=== PATIENT | male | born 1945 | race Caucasian/White ===

== ENCOUNTER 2023-04-06 17:06 | Inpatient (IN) ==
[2023-04-06 18:46] LABS: ABS Basophils 0.1 10^3/uL (0.0-0.1); ABS Lymphocytes 2.2 10^3/uL (1.0-4.8); ABS Monocytes 1.4 10^3/uL (0.0-1.1); ABS Neutrophils 16.3 10^3/uL (1.5-7.6); ABS Nucleated RBC 0.01 10^3/ul; Hematocrit 30.7 % (38-53); Hemoglobin 10.1 g/dL (13.2-16.3); Lymphocyte % 11.1 %; Mean Corpuscular Hemoglobin 32.1 pg (27-33); Mean Corpuscular Volume 97.4 fL (80-97); Mean Platelet Volume 9.9 fL (7.5-11.2); Platelet Count 206 10^3/uL (150-450); Red Blood Count 3.15 10^6/uL (4.06-5.63); Red Cell Distribution Width 13.9 % (12-17)
[2023-04-06 18:56] LABS: Activated Partial Thrombo Time 29.4 seconds (26.0-38.0); INR 1.73 (0.83-1.13)
[2023-04-06] MEDS ORDERED: Pantoprazole VIAL 40 MG VIAL IV ONE (19:03)
[2023-04-06 19:08] LABS: Albumin 3.9 g/dL (3.2-5.2); Calcium 10.5 mg/dL (8.6-10.3); Total Bilirubin 0.5 mg/dL (0.2-1.0)
[2023-04-06 19:14] LABS: Albumin/Globulin Ratio 1.8 (1-3); C Reactive Protein 4.69 mg/L (<8.01); Creatinine, Serum 1.68 mg/dL (0.67-1.17); Globulin 2.2 g/dL (2-4); Total Protein 6.1 g/dL (6.4-8.9); eGFR CKD-EPI 41.9 (>60)
[2023-04-06] MEDS ORDERED: Lactated Ringers 1000 ml BAG 1,000 ML IV ONE (19:17)
[2023-04-06] MEDS ORDERED: Iodixanol (CONTRAST) 320 MG/ML 100 ML SDV IV ONE (19:26)
[2023-04-06] MEDS ORDERED: Pantoprazole 80 mg in NS BAG 80 MG/250 ML BAG IV ONE (20:19)
[2023-04-06] MEDS ORDERED: Ondansetron 4 mg VIAL 2 MG/ML 2 ml VIAL IV PRN (20:38)
[2023-04-06] MEDS ORDERED: Dextrose 50% Syringe 50 ml 25 GM/50 ML SYRINGE IV PUSH PRN (20:41)
[2023-04-06] MEDS: Pantoprazole 80 mg in NS BAG 80 MG/250 ML BAG IV SCH (21:30)
[2023-04-06 21:55] LABS: Urine Appearance Clear; Urine Bilirubin Negative (Negative); Urine Blood Negative (Negative); Urine Color Straw; Urine Glucose Negative (Negative); Urine Ketones Trace (Negative); Urine Nitrite Negative (Negative); Urine Protein Negative (Negative); Urine Specific Gravity 1.028 (1.002-1.030); Urine Urobilinogen Negative (Negative)
[2023-04-06 22:15] LABS: Hematocrit 25.6 % (38-53); Hemoglobin 8.7 g/dL (13.2-16.3)
[2023-04-07 00:28] LABS: Hemoglobin 7.8 g/dL (13.2-16.3)
[2023-04-07 02:58] LABS: Hematocrit 21.4 % (38-53); Hemoglobin 7.4 g/dL (13.2-16.3)
[2023-04-07 05:42] LABS: ABS Basophils 0.1 10^3/uL (0.0-0.1); ABS Eosinophils 0.1 10^3/uL (0.0-0.5); ABS Lymphocytes 2.1 10^3/uL (1.0-4.8); ABS Monocytes 1.2 10^3/uL (0.0-1.1); ABS Neutrophils 8.9 10^3/uL (1.5-7.6); ABS Nucleated RBC 0.01 10^3/ul; Eosinophil % 0.5 %; Hematocrit 20.7 % (38-53); Mean Corpuscular Hemoglobin 32.4 pg (27-33); Mean Corpuscular Volume 95.6 fL (80-97); Mean Platelet Volume 9.7 fL (7.5-11.2); Nucleated Red Blood Cells % 0.1 %/100WBC (0.0-0.8); Platelet Count 152 10^3/uL (150-450); Red Blood Count 2.17 10^6/uL (4.06-5.63); Red Cell Distribution Width 13.7 % (12-17); White Blood Count 12.3 10^3/uL (3.6-10.2)
[2023-04-07 06:00] LABS: Creatinine, Serum 1.7 mg/dL (0.67-1.17); Magnesium 1.5 mg/dL (1.9-2.7); Potassium 4.3 mmol/L (3.5-5.0); eGFR CKD-EPI 41.3 (>60)
[2023-04-07] MEDS ORDERED: Magnesium Sulfate IV 3 GM in NS 0.9% 100 ml BAG 100 ML IVPB ONE (06:12)
[2023-04-07] MEDS: Pantoprazole 80 mg in NS BAG 80 MG/250 ML BAG IV SCH ×2 (07:43→16:55)
[2023-04-07] MEDS ORDERED: Lactated Ringers 1000 ml BAG 1,000 ML IV SCH (08:00)
[2023-04-07] MEDS ORDERED: Midazolam 10 mg/10 ml VIAL 1 mg/ml 10 ml VIAL (10 mg) ONE (09:33)
[2023-04-07] MEDS ORDERED: fentaNYL 100 mcg/2 ml 50 MCG/ML VIAL ONE (09:33)
[2023-04-07] MEDS ORDERED: Lidocaine 1% MPF 5 ML VIAL INJ ONE (09:51)
[2023-04-07 11:27] LABS: Rapid COVID-19 Molecular Undetected (Undetected)
[2023-04-07] MEDS ORDERED: EPINEPHrine SYR 0.1MG/ML 10 ml SYRINGE IV ONE (11:41)
[2023-04-07 17:47] LABS: Hematocrit 22.4 % (38-53); Hemoglobin 7.8 g/dL (13.2-16.3)
[2023-04-08] MEDS: Pantoprazole 80 mg in NS BAG 80 MG/250 ML BAG IV SCH (03:25)
[2023-04-08 05:12] LABS: Hematocrit 20.7 % (38-53); Hemoglobin 7.2 g/dL (13.2-16.3); Mean Corpuscular Hemoglobin 32.5 pg (27-33); Mean Corpuscular Hgb Conc 34.9 g/dL (31-36); Mean Corpuscular Volume 93.3 fL (80-97); Mean Platelet Volume 10.1 fL (7.5-11.2); Platelet Count 129 10^3/uL (150-450); Red Blood Count 2.22 10^6/uL (4.06-5.63); Red Cell Distribution Width 14.2 % (12-17); White Blood Count 11.1 10^3/uL (3.6-10.2)
[2023-04-08 05:29] LABS: Calcium 9.2 mg/dL (8.6-10.3); Creatinine, Serum 1.71 mg/dL (0.67-1.17); Magnesium 1.9 mg/dL (1.9-2.7)
[2023-04-08] MEDS ORDERED: Lactated Ringers 1000 ml BAG 1,000 ML IV SCH ×2 (08:00→09:33)
[2023-04-08 19:06] LABS: Hematocrit 24.2 % (38-53); Hemoglobin 8.4 g/dL (13.2-16.3)
[2023-04-08] MEDS: Pantoprazole VIAL 40 MG VIAL IVPB SCH (20:23)
[2023-04-09 05:56] LABS: Hematocrit 24.2 % (38-53); Hemoglobin 8.6 g/dL (13.2-16.3); Mean Corpuscular Hemoglobin 32.6 pg (27-33); Mean Corpuscular Hgb Conc 35.4 g/dL (31-36); Mean Corpuscular Volume 92.2 fL (80-97); Mean Platelet Volume 9.6 fL (7.5-11.2); Platelet Count 134 10^3/uL (150-450); Red Blood Count 2.63 10^6/uL (4.06-5.63); Red Cell Distribution Width 14.8 % (12-17); White Blood Count 9.2 10^3/uL (3.6-10.2)
[2023-04-09 06:11] LABS: Calcium 9.2 mg/dL (8.6-10.3); Creatinine, Serum 1.43 mg/dL (0.67-1.17); Magnesium 1.6 mg/dL (1.9-2.7); Potassium 3.8 mmol/L (3.5-5.0); eGFR CKD-EPI 50.8 (>60)
[2023-04-09] MEDS ORDERED: Magnesium Sulf 4 GM/100 ML IV 4,000 MG/100 ML BAG IVPB ONE (06:12)
[2023-04-09] MEDS ORDERED: Potassium Chlor 20 meq TAB.ER PO ONE (06:17)
[2023-04-09] MEDS: Pantoprazole VIAL 40 MG VIAL IVPB SCH ×2 (08:01→20:49)
[2023-04-10 08:12] LABS: Hematocrit 23.3 % (38-53); Hemoglobin 8.3 g/dL (13.2-16.3); Mean Corpuscular Hemoglobin 33.3 pg (27-33); Mean Corpuscular Hgb Conc 35.7 g/dL (31-36); Mean Corpuscular Volume 93.3 fL (80-97); Mean Platelet Volume 9.9 fL (7.5-11.2); Platelet Count 141 10^3/uL (150-450); White Blood Count 8.1 10^3/uL (3.6-10.2)
[2023-04-10 08:41] LABS: Calcium 8.8 mg/dL (8.6-10.3); Creatinine, Serum 1.33 mg/dL (0.67-1.17); Magnesium 1.7 mg/dL (1.9-2.7); Potassium 3.9 mmol/L (3.5-5.0); eGFR CKD-EPI 55.4 (>60)
[2023-04-10] MEDS: Pantoprazole VIAL 40 MG VIAL IVPB SCH ×2 (09:01→21:25)
[2023-04-11 07:55] LABS: ABS Basophils 0.1 10^3/uL (0.0-0.1); ABS Eosinophils 0.4 10^3/uL (0.0-0.5); ABS Lymphocytes 1.6 10^3/uL (1.0-4.8); ABS Monocytes 0.9 10^3/uL (0.0-1.1); ABS Neutrophils 7.1 10^3/uL (1.5-7.6); ABS Nucleated RBC 0.01 10^3/ul; Eosinophil % 3.9 %; Hematocrit 25.7 % (38-53); Hemoglobin 9.1 g/dL (13.2-16.3); Mean Corpuscular Hemoglobin 33.1 pg (27-33); Mean Corpuscular Hgb Conc 35.4 g/dL (31-36); Mean Corpuscular Volume 93.6 fL (80-97); Mean Platelet Volume 9.5 fL (7.5-11.2); Nucleated Red Blood Cells % 0.1 %/100WBC (0.0-0.8); Platelet Count 173 10^3/uL (150-450); Red Blood Count 2.74 10^6/uL (4.06-5.63); Red Cell Distribution Width 14.4 % (12-17); White Blood Count 10.1 10^3/uL (3.6-10.2)
[2023-04-11 08:15] LABS: Albumin 3.6 g/dL (3.2-5.2); Albumin/Globulin Ratio 1.5 (1-3); Calcium 9.1 mg/dL (8.6-10.3); Creatinine, Serum 1.31 mg/dL (0.67-1.17); Globulin 2.4 g/dL (2-4); Potassium 4.4 mmol/L (3.5-5.0); Total Bilirubin 0.6 mg/dL (0.2-1.0); eGFR CKD-EPI 56.4 (>60)
[2023-04-11] MEDS: Pantoprazole VIAL 40 MG VIAL IVPB SCH (08:27)
[2023-04-12 08:17] LABS: ABS Basophils 0.1 10^3/uL (0.0-0.1); ABS Eosinophils 0.7 10^3/uL (0.0-0.5); ABS Lymphocytes 1.7 10^3/uL (1.0-4.8); ABS Monocytes 0.7 10^3/uL (0.0-1.1); ABS Neutrophils 5.9 10^3/uL (1.5-7.6); ABS Nucleated RBC 0.01 10^3/ul; Eosinophil % 7.8 %; Hematocrit 28.2 % (38-53); Hemoglobin 9.9 g/dL (13.2-16.3); Lymphocyte % 18.3 %; Mean Corpuscular Hemoglobin 32.9 pg (27-33); Mean Corpuscular Hgb Conc 34.9 g/dL (31-36); Mean Platelet Volume 9.7 fL (7.5-11.2); Nucleated Red Blood Cells % 0.1 %/100WBC (0.0-0.8); Platelet Count 201 10^3/uL (150-450); White Blood Count 9.1 10^3/uL (3.6-10.2)
[2023-04-12 08:45] LABS: Albumin 3.7 g/dL (3.2-5.2); Albumin/Globulin Ratio 1.5 (1-3); Calcium 9.3 mg/dL (8.6-10.3); Creatinine, Serum 1.42 mg/dL (0.67-1.17); Globulin 2.5 g/dL (2-4); Potassium 4.4 mmol/L (3.5-5.0); Total Bilirubin 0.6 mg/dL (0.2-1.0); Total Protein 6.2 g/dL (6.4-8.9); eGFR CKD-EPI 51.2 (>60)
[2023-04-12 14:41] VITALS: BP 125/59
== END 2023-04-12 16:10 | disposition home or self-care (01) | DRG 378 ==
LOC: ED 17:06 → SUATTDRO 20:38 → EDHOLD 20:38 → ICU 21:44 → MED 04-09 10:07
PROVIDERS: ADMIT Internal Medicine Pulmonary Disease; ATTEND Internal Medicine Hematology & Oncology